=== PATIENT | male | born 1995 | race Caucasian/White ===

== ENCOUNTER 2017-08-18 22:17 | Emergency (ER) | payer OTHER ==
[~2017-08-18] VITALS: Ht 182.9 cm; Wt 105.0 kg
[2017-08-18 22:22] VITALS: TEMP 37.5; Ht 182.9 cm; Wt 105.0 kg
[2017-08-18] MEDS ORDERED: BIOT1CAP8 PO (22:50)
--- NOTE | 2017-08-18 22:57 | DIAGNOSTIC IMAGING REPORT ---
L ANKLE MIN 3 VIEWS ROUTINE CLINICAL HISTORY: Left ankle pain s/p inversion injury. Audible "Pop" trauma COMPARISON: None. DISCUSSION: The bones and joint spaces appear intact. There is no evidence of fracture, dislocation or bony disease. Mild lateral soft tissue edema IMPRESSION: Negative study. The above report was generated using voice recognition software. It may contain grammatical, syntax or spelling errors. Electronically signed by: Nader Ya M.D. 08/18/2017 10:55 PM Dictated Date/Time: 08/18/2017 10:55 PM
--- NOTE | 2017-08-18 23:24 | EMERGENCY ROOM VISIT NOTE ---
History First contact with patient: 22:25 Chief Complaint: ANKLE PAIN Stated Complaint: L ANKLE PAIN History of Present Illness The patient is a 21 year old male who presents to the Emergency Room via ambulance with complaints of "left ankle pain". The patient states that 0.5 hours prior to arrival he was participating in a game of soccer at the [employer] building at [facility]. He states that he inverted his left ankle, and heard a pop and now has swelling on the lateral aspect of his left ankle. He was brought here via ambulance for further evaluation and management. Review of Systems A complete 6-point Review of Systems was discussed with the patient, with pertinent positives and negatives listed in the History of Present Illness. All remaining Review of Systems questions can be considered negative unless otherwise specified. Past Medical/Surgical History No pertinent. Family History No pertinent. Social History Smoking Status: Never Smoker Patient lives locally and is a [employer] student. Current/Historical Medications Scheduled Biotin (Biotin), 1 CAP PO DAILY Physical Exam Vital Signs Date Time Temp Pulse Resp B/P (MAP) Pulse Ox O2 Delivery O2 Flow Rate FiO2 08/18/17 22:22 37.5 101 18 123/68 98 Room Air Physical Exam VITAL SIGNS - Vital signs and nursing notes were reviewed. Stable. GENERAL -21-year-old male appearing his stated age who is in no acute distress. Communicates well with provider and answers questions appropriately. SKIN - Without rashes. Skin overlying the left ankle is edematous, and non- erythematous. There is no breaks in the integument. EXTREMITIES - No clubbing or peripheral cyanosis. No pretibial edema present. No tenderness to palpation overlying the ankle, tib-fib or foot region. Minimal swelling of the left lateral malleolus. Neurovascularly intact in this region. +5/5 strength noted in UE/LE bilaterally. Medical Decision & Procedures ER Provider Diagnostic Interpretation: L ANKLE MIN 3 VIEWS ROUTINE CLINICAL HISTORY: Left ankle pain s/p inversion injury. Audible "Pop" trauma COMPARISON: None. DISCUSSION: The bones and joint spaces appear intact. There is no evidence of fracture, dislocation or bony disease. Mild lateral soft tissue edema IMPRESSION: Negative study. The above report was generated using voice recognition software. It may contain grammatical, syntax or spelling errors. Electronically signed by: Nader Ya M.D. 08/18/2017 10:55 PM Dictated Date/Time: 08/18/2017 10:55 PM Medical Decision Patient was seen and evaluated as above. He presents to us today being less for a left ankle injury. X-rays were obtained and found to be negative. I suspect he likely is experiencing an ankle sprain. He'll be placed a gel ankle splint, and made nonweightbearing with crutches. He was educated upon management. He is to follow-up with orthopedics if the pain persists beyond 3- 5 days. He was educated upon worrisome symptoms in which to return, had questions or discharge, and was discharged home in good condition. In the evaluation and treatment of this patient, the following differential diagnoses were considered: Ankle Fracture, Ankle Sprain, Distal Fibula Fracture , Distal Tibia Fracture, Foot Fracture, [place] Fracture. Impression Primary Impression: Left ankle pain Departure Information Dispostion Home / Self-Care Condition GOOD Referrals [facility] (PCP) Carlos Sykes D.O. Patient Instructions [facility] Additional Instructions You have been treated in the Emergency Department for a left Ankle injury. For pain control, you can use the following [id number] medicines (if >12 yo): - Regular strength (325mg/tab) Tylenol (acetaminophen) 2 tabs every 4-6 hours as needed. Do not exceed 12 tablets in a 24 hour period. Avoid taking more than 3 grams (3000 mg) of Tylenol per day. This includes any other sources of acetaminophen you may take on a regular basis. - Regular strength (200 mg/tab) Advil (ibuprofen) 1-2 tabs every 4-6 hours as needed. Do not exceed a dose of 3200 mg per day. If this is a recent injury (<24 hrs), ice can be applied to the area of pain for the first 3 days to help decrease pain and inflammation. You have been provided the number for an Orthopaedic Surgeon. You should call this number as soon as possible to establish a follow-up visit from today's Emergency Department visit. Keep the ankle brace/splint in place until cleared by Orthopedics. Use the crutches you have been provided to keep ALL weight off of the ankle until weight bearing is tolerable. Return to the Emergency Department if your current symptoms worsen despite treatment course outlined above, or if you develop any of the following symptoms : intractable pain despite aforementioned treatment course or new onset of numbness or tingling of the foot. Problem Qualifiers Primary Impression: Left ankle pain Chronicity: acute Qualified Codes: M25.572 - Pain in left ankle and joints of left foot
[2017-08-18 23:31] VITALS: BP 135/62; PULSE 104; O2SAT 97
== END 2017-08-18 23:29 | disposition home or self-care (01) ==
LOC: C.EDA 22:20
DX: S99.912A Unspecified injury of left ankle, initial encounter (principal); M25.572 Pain in left ankle and joints of left foot; X50.9XXA Other and unspecified overexertion or strenuous movements or postures, initial encounter; Y93.66 Activity, soccer; Y92.322 Soccer field as the place of occurrence of the external cause